=== PATIENT | female | born 1985 | race Caucasian/White ===

== ENCOUNTER 2017-02-19 17:26 | Outpatient (CLI) | payer MEDICAID ==
[~2017-02-19] VITALS: Ht 154.9 cm; Wt 59.6 kg
[2017-02-19] MEDS ORDERED: PRENAT PO (18:15)
[2017-02-19 18:16] VITALS: BP 96/58; PULSE 86; RESP 18; Ht 154.9 cm; Wt 59.6 kg
[2017-02-19 18:45] LABS: ADD SCAN DIFF NO; HAAIG REFLEX REFLEX FILED
[2017-02-19 18:49] LABS: BASOPHILS % 0.2 % (0.0-2.0); EOSINOPHILS # 0.2 10^3/ul (0.0-0.5); EOSINOPHILS % 1.8 % (0.0-7.0); HEMATOCRIT 30.7 % (37.0-47.0); HEMOGLOBIN 10.6 g/dl (12.0-16.0); LYMPHOCYTES # 2.4 10^3/ul (0.8-2.9); LYMPHOCYTES % 29.5 % (15.0-51.0); MEAN CORPUSCULAR HEMOGLOBIN 30.5 pg (29.0-33.0); MEAN CORPUSCULAR HGB CONC 34.5 g/dl (32.0-37.0); MEAN CORPUSCULAR VOLUME 88.5 fl (82.0-101.0); MEAN PLATELET VOLUME 10.5 fl (7.4-10.4); MONOCYTE # 0.5 10^3/ul (0.3-0.9); MONOCYTES % 5.5 % (0.0-11.0); NEUTROPHIL # 5.1 10^3/ul (1.6-7.5); NEUTROPHILS % 62.8 % (39.0-77.0); PLATELET COUNT 167 10^3/UL (140-415); RED BLOOD COUNT 3.47 10^6/ul (4.20-5.40); RED CELL DISTRIBUTION WIDTH 13.3 % (11.5-14.5); WHITE BLOOD COUNT 8.2 10^3/ul (4.8-10.8)
--- NOTE | 2017-02-19 19:05 | RADRPT ---
PROCEDURE: US OB. CLINICAL INDICATION: Itching . well being. TECHNIQUE: Multiple sonographic images of the pelvis were obtained. The images were reviewed on a PACS workstation. COMPARISON: No prior studies are available for comparison. FINDINGS: There is a single live intrauterine . cardiac activity is identified at a rate of 14 2 beats per minute. presentation is cephalic. Placenta is fundal grade 1. The endovaginal cervical length is 3. 7 cm. Biophysical profile score is as follows: Breathing 2 Movements 2 Tone 2 Fluid volume 2 Amniotic fluid index = 17.8 cm Total biophysical profile score = 05/19 IMPRESSION: Biophysical profile score = 05/19 RPTAT: HH .Nicolás Bianchi MD, MD Date Time Electronically viewed and signed by .Nicolás Bianchi MD, on 02/19/2017 19:05 .W/
--- NOTE | 2017-02-19 19:08 | RADRPT ---
PROCEDURE: US OB. CLINICAL INDICATION: Itching TECHNIQUE: Multiple sonographic images of the pelvis were obtained. The images were reviewed on a PACS workstation. COMPARISON: No prior studies are available for comparison. FINDINGS: The cervix is closed with a length of 3.7 cm. There is a single viable intrauterine gestation. Cardiac activity is present with 161 beats per min hilaria. There is a cephalic presentation. Measurements were made in order to determine age. The results are as follows: BPD =7.07 cm HC =27.09 cm AC =26.52 cm FL =5.79 cm. Estimated gestational age of approximately 30 weeks 5 days. The estimated date of delivery is 05/02/2017. The EFW = 1537 g 23% . The placenta is fundal. There is no evidence for an abruption or placenta previa. There is a normal amount of amniotic fluid with an ISAIAS = 17.8 cm. IMPRESSION: Single viable intrauterine gestation of approximately 29 weeks 5 days. The estimated date of delive ry is 05/02/2017 . .Nicolás Bianchi MD, Date Time Electronically viewed and signed by .Nicolás Bianchi MD, on 02/19/2017 19:08 .W/
[2017-02-19 19:25] LABS: ADD UMIC YES; URINE BILIRUBIN (Dip) 1+ (NEGATIVE); URINE BLOOD (Dip) NEGATIVE (NEGATIVE); URINE COLOR YELLOW (YELLOW); URINE GLUCOSE (Dip) NEGATIVE (NEGATIVE); URINE KETONES (Dip) NEGATIVE (NEGATIVE); URINE LEUKOCYTE ESTERASE (Dip) 1+ (NEGATIVE); URINE NITRITE (Dip) NEGATIVE (NEGATIVE); URINE TOTAL PROTEIN (Dip) NEGATIVE (NEGATIVE); URINE UROBILINOGEN (Dip) 4.0 E.U./dL (0.1-1.0)
[2017-02-19 19:38] LABS: BACTERIA,URINE FEW; ICTOTEST NEGATIVE (NEGATIVE); SQUAMOUS EPITHELIAL CELL,UR MANY; URINE RBCS 0-2 /HPF ([, 0])
[2017-02-19 19:40] LABS: ALBUMIN 3.1 g/dl (3.3-4.9); CHLORIDE 104 mmol/L (97-110); SODIUM 136 mmol/L (135-144)
[2017-02-19 19:41] LABS: POTASSIUM 3.6 mmol/L (3.5-5.1)
[2017-02-19 19:43] LABS: ALBUMIN/GLOBULIN RATIO 0.86; ALKALINE PHOSPHATASE 111 IU/L (42-121); ANION GAP 14 (8-16); ASPARTATE AMINO TRANSFERASE 66 IU/L (15-46); BILIRUBIN,INDIRECT 0.3 mg/dl (0-1.1); BILIRUBIN,TOTAL 0.3 mg/dl (0.2-1.3); BLOOD UREA NITROGEN 7 mg/dl (7-20); CARBON DIOXIDE 22 mmol/L (21-31); CREATININE 0.39 mg/dl (0.44-1.00); TOTAL PROTEIN 6.7 g/dl (6.1-8.1)
[2017-02-19 19:44] LABS: ALANINE AMINOTRANSFERASE 62 IU/L (13-69); CALCIUM 8.8 mg/dl (8.4-10.2); GLUCOSE 87 mg/dl (70-220)
[2017-02-19 20:05] LABS: BARBITURATES NEGATIVE (NEGATIVE); BENZODIAZEPINES NEGATIVE (NEGATIVE); CANNABINOIDS NEGATIVE (NEGATIVE); COCAINE NEGATIVE (NEGATIVE); OPIATES NEGATIVE (NEGATIVE)
--- NOTE | 2017-02-19 21:12 | PN ---
Date/Time of Note Date/Time of Note DATE: 02/19/17 TIME: 21:03 OB Subjective Subjective Subjective 31yo P1 @ presents from clinic for itching,which she has had since 5mos of . She just got released from long term 2 wks ago and has known Hep B and Hep C She received PNC in long term and will bring the records to clinic on Thursday No bleeding or ctx or LOF, good FM OB Objective Objective Objective VS: 96/58, 86, 18, 99.1 Abdomen- gravid, n/t SVE- deferred FHT- 130; Cat I [place]- no ctx cervical length 3.7cm utox neg nml chemistry, AST/ALT- 66/22 CBC- nml, w exception of mild anemia (hemoglobin 10.6) Abdomen: WNL Heart Rate: 130's Accelerations: Accelerations Present Decelerations: No Decelerations Varibility: Moderate OB Assessment/Plan Other Assessment: 31 yo P1 @ 29 wks w itching, which has been chronic and happened with her previous as well - reassuring status - h/o Hep B and C -nml cervical length, no si/sx pre-term labor Other plan: d/c home patient to f/u in clinic on Thursday w records and to start care, possibly to have LFT"s drawn advised DIANA Rice MD February 19, 2017 21:12
[2017-02-19 21:23] LABS: HEPATITIS B CORE ANTIBODY NEGATIVE (NEGATIVE)
--- NOTE | 2017-02-20 00:02 | TRIAGE ---
OB Triage Datetime Report Generated by CPN: 02/20/2017 00:02 Datetime: 02/19/2017 21:00 Labor Evaluation Frequency: 0 Monitor Mode: External Pattern: Normal: <= 5 Contractions in 10 Minutes Heart Rate FHR Baseline Rate: 135 FHR Baseline Changes: No Baseline Change Variability: Moderate 6-25 bpm Accelerations: 15X15 Decelerations: None Category: Category I Datetime: 02/19/2017 20:39 Stage of : OB Triage Datetime: 02/19/2017 20:27 Vaginal Exam Membrane Status: Intact Datetime: 02/19/2017 20:00 Labor Evaluation Frequency: 0 Monitor Mode: External Heart Rate FHR Baseline Rate: 135 Monitor Mode: External US FHR Baseline Changes: No Baseline Change Variability: Moderate 6-25 bpm Accelerations: 15X15 Decelerations: None Category: Category I Datetime: 02/19/2017 19:27 Assessment Type: Triage Maternal Assessment Level of Consciousness: Fully Conscious DTR's/Clonus: DTRs 2+; No Clonus Headache: Denies Blurred Vision: No Respiratory Effort: Unlabored; Regular Rhythm; Equal Expansion Breath Sounds, Left: Clear and Equal Breath Sounds, Right: Clear and Equal Nausea/Vomiting: Denies RUQ Epigastric Pain: Denies Lower Extremities Edema: None Degree: None Upper Extremities Edema: None Degree: None Facial Edema: None Fall Risk Assessment History of Falling: (0) No Secondary Diagnosis: (0) No Ambulatory Aid: (0) Bedrest/Nurse Assist IV Therapy: (0) No Gait: (0) Normal/Bedrest/Immobile Mental Status: (0) Oriented to Own Ability Fall Score: 0 Fall Risk Score Definition: No Risk: No action required Datetime: 02/19/2017 17:58 Stage of : OB Triage Assessment Type: Triage EGA: 30.5 Maternal Assessment Level of Consciousness: Fully Conscious DTR's/Clonus: DTRs 2+; No Clonus Headache: Denies Blurred Vision: No Respiratory Effort: Unlabored; Regular Rhythm; Equal Expansion Breath Sounds, Left: Clear and Equal Breath Sounds, Right: Clear and Equal Nausea/Vomiting: Denies RUQ Epigastric Pain: Denies Facial Edema: None Temperature Route: Axillary Fall Risk Assessment History of Falling: (0) No Secondary Diagnosis: (0) No Ambulatory Aid: (0) Bedrest/Nurse Assist IV Therapy: (0) No Gait: (0) Normal/Bedrest/Immobile Mental Status: (0) Oriented to Own Ability Fall Score: 0 Fall Risk Score Definition: No Risk: No action required Labor Evaluation Frequency: 0 Monitor Mode: External Heart Rate FHR Baseline Rate: 135 Monitor Mode: External US Variability: Moderate 6-25 bpm Accelerations: 15X15 Decelerations: None Category: Category I Pain Assessment Pain Scale: 7 Pain Presence: Constant (Annotations: COMES AND GOES DAY TO DAY) Pain Type: Sharp Pain Location: Abdomen Pain Goal: 3 Pain Relief Measures: Comfort Measures Datetime: 02/19/2017 17:57 Time of Arrival: 02/19/2017 17:20 Arrived By: Ambulatory Arrived From: Dr. Davis Chief Complaint: SENT FROM CLINIC TO EVALUATE FOR CHOLESTASIS, ORDERS RECEIVED Movement: Present Contractions: Denies/Absent Rupture of Membranes: Denies Vaginal Bleeding: None Vaginal Discharge: Denies Recent Sexual Intercouse: Denies Abdominal Trauma: Not Applicable Patient Complaints: None Time Provider Notified: 02/19/2017 20:39 Provider Notified: DR RAMIREZ Initial Plan: MONITOR,
== END 2017-02-19 21:05 | disposition home or self-care (01) ==
LOC: OBT 17:26 → L-D 17:26 → OBT 21:05
PROVIDERS: ATTEND Obstetrics & Gynecology
DX: O26.893 Other specified pregnancy related conditions, third trimester (principal); O98.413 Viral hepatitis complicating pregnancy, third trimester; B19.10 Unspecified viral hepatitis B without hepatic coma; B19.20 Unspecified viral hepatitis C without hepatic coma; Z3A.29 29 weeks gestation of pregnancy
CPT/HCPCS: 76815; 76817; 76818; 80053; 80307; 81001; 81003; 83789; 85025; 86704; 86709; 86803; 87340

== ENCOUNTER 2017-02-20 23:05 | Inpatient (IN) | payer MEDICAID ==
[~2017-02-20] VITALS: Ht 157.5 cm; Wt 59.1 kg
[~2017-02-20 23:05] MED LIST: PRENAT PO
[2017-02-20 23:45] VITALS: BP 104/52; PULSE 86; RESP 18; Ht 157.5 cm; Wt 59.1 kg
--- NOTE | 2017-02-21 00:09 | HP ---
Date/Time of Note Date/Time of Note DATE: 02/21/17 TIME: 00:07 OB - History Hx of Present Free Text/Dictation 30+wks GA with severe itching suspected cholestatsis of pregnacy : 2 Para: 1 Care: Good Care Ultrasounds: Normal mid trimester US Obstetrical Complications: None Medical Complications: None Past Family/Social History * Past Medical, Surgical, Family and Obstetric Histories reviewed from chart. OB Admission Exam Vital Signs Vital Signs Vital Signs Date Time Temp Pulse Resp B/P Pulse Ox O2 Delivery O2 Flow Rate FiO2 02/20/17 23:45 98.4 86 18 104/52 Room Air Physical Exam Abdomen: WNL Membranes: Intact Heart Rate: 140's Accelerations: Accelerations Present Decelerations: No Decelerations Varibility: Moderate Contractions on Admission: None OB Assessment/Plan Reason for admission: observation Plan: Expectant Management Other plan: Prenatalogy consult Steroids PIH panel Close monitoring PRASANTH DELONG M.D. February 21, 2017 00:09
[2017-02-21] MEDS ORDERED: BETAMET NA PHOS/AC(6 MG/ML) 5ML INJ IM SCH (00:30)
[2017-02-21] MEDS: LACTATED RINGER'S 1,000 ML IV SCH ×3 (01:05→14:44)
[2017-02-21 01:22] LABS: ADD SCAN DIFF NO
[2017-02-21 01:27] LABS: BASOPHILS % 0.2 % (0.0-2.0); EOSINOPHILS # 0.1 10^3/ul (0.0-0.5); EOSINOPHILS % 1.7 % (0.0-7.0); HEMOGLOBIN 10.7 g/dl (12.0-16.0); LYMPHOCYTES # 2.4 10^3/ul (0.8-2.9); LYMPHOCYTES % 29.5 % (15.0-51.0); MEAN CORPUSCULAR HEMOGLOBIN 29.7 pg (29.0-33.0); MEAN CORPUSCULAR HGB CONC 33.4 g/dl (32.0-37.0); MEAN CORPUSCULAR VOLUME 88.9 fl (82.0-101.0); MEAN PLATELET VOLUME 10.4 fl (7.4-10.4); MONOCYTE # 0.7 10^3/ul (0.3-0.9); MONOCYTES % 8.1 % (0.0-11.0); NEUTROPHILS % 60.3 % (39.0-77.0); PLATELET COUNT 157 10^3/UL (140-415); RED CELL DISTRIBUTION WIDTH 13.2 % (11.5-14.5); WHITE BLOOD COUNT 8.3 10^3/ul (4.8-10.8)
[2017-02-21 01:37] LABS: ADD UMIC NO; URINE BILIRUBIN (Dip) 1+ (NEGATIVE); URINE BLOOD (Dip) NEGATIVE (NEGATIVE); URINE COLOR YELLOW (YELLOW); URINE GLUCOSE (Dip) NEGATIVE (NEGATIVE); URINE KETONES (Dip) NEGATIVE (NEGATIVE); URINE LEUKOCYTE ESTERASE (Dip) NEGATIVE (NEGATIVE); URINE NITRITE (Dip) NEGATIVE (NEGATIVE); URINE TOTAL PROTEIN (Dip) NEGATIVE (NEGATIVE); URINE UROBILINOGEN (Dip) 1.0 E.U./dL (0.1-1.0)
[2017-02-21 01:41] LABS: ICTOTEST POSITIVE (NEGATIVE)
[2017-02-21 01:51] LABS: PROTIME 13.2 Sec (12.2-14.2)
[2017-02-21 01:52] LABS: PARTIAL THROMBOPLASTIN TIME 31.1 Sec (25.0-35.0)
[2017-02-21 02:01] LABS: ALBUMIN 3.2 g/dl (3.3-4.9); ALBUMIN/GLOBULIN RATIO 0.91; BILIRUBIN,INDIRECT 0.4 mg/dl (0-1.1); BILIRUBIN,TOTAL 0.4 mg/dl (0.2-1.3); CALCIUM 8.9 mg/dl (8.4-10.2); CREATININE 0.54 mg/dl (0.44-1.00); POTASSIUM 3.8 mmol/L (3.5-5.1); TOTAL PROTEIN 6.7 g/dl (6.1-8.1); URIC ACID 4.1 mg/dl (3.1-7.9)
[2017-02-21 02:22] LABS: BARBITURATES NEGATIVE (NEGATIVE); BENZODIAZEPINES NEGATIVE (NEGATIVE); CANNABINOIDS NEGATIVE (NEGATIVE); COCAINE NEGATIVE (NEGATIVE); OPIATES NEGATIVE (NEGATIVE)
--- NOTE | 2017-02-21 03:19 | TRIAGE ---
OB Triage Datetime Report Generated by CPN: 02/21/2017 03:18 Datetime: 02/21/2017 01:53 Stage of : Antepartum Assessment Type: Ongoing Assessment Level of Consciousness: Fully Conscious DTR's/Clonus: DTRs 2+; No Clonus Headache: Denies Blurred Vision: No Respiratory Effort: Unlabored; Regular Rhythm; Equal Expansion Breath Sounds, Left: Clear and Equal Breath Sounds, Right: Clear and Equal Nausea/Vomiting: Denies RUQ Epigastric Pain: Denies Lower Extremities Edema: None Degree: None Upper Extremities Edema: None Degree: None Facial Edema: None Temperature Route: Oral History of Falling: (0) No Secondary Diagnosis: (0) No Ambulatory Aid: (0) Bedrest/Nurse Assist IV Therapy: (0) No Gait: (0) Normal/Bedrest/Immobile Mental Status: (0) Oriented to Own Ability Fall Score: 0 Fall Risk Score Definition: No Risk: No action required Pain Presence: None/Denies Datetime: 02/21/2017 01:40 Stage of : Antepartum Datetime: 02/21/2017 01:30 Stage of : OB Triage Datetime: 02/21/2017 01:00 Stage of : OB Triage Assessment Type: Triage Frequency: IRRITABILITY Monitor Mode: External Pattern: Normal: <= 5 Contractions in 10 Minutes FHR Baseline Rate: 135 Monitor Mode: External US FHR Baseline Changes: No Baseline Change Variability: Moderate 6-25 bpm Accelerations: 15X15 Decelerations: None Category: Category I Datetime: 02/21/2017 00:25 Stage of : OB Triage Datetime: 02/21/2017 00:22 Contraction Comments: found patient scratching belly and moving toco. Advised to keep monitor in p lace for contractions. Pt verbalized understanding. Datetime: 02/21/2017 00:00 Stage of : OB Triage Frequency: IRRITABILITY Monitor Mode: External Pattern: Normal: <= 5 Contractions in 10 Minutes Resting Tone [place]: Relaxed Contraction Comments: ABDOMEN SOFT ON PALPATION FHR Baseline Rate: 135 Monitor Mode: External US Variability: Moderate 6-25 bpm Accelerations: 15X15 Decelerations: None Category: Category I Datetime: 02/20/2017 23:40 Stage of : OB Triage Datetime: 02/20/2017 23:39 Time of Arrival: 02/20/2017 23:00 EGA: 30.6 Arrived By: Wheelchair Arrived From: Home Chief Complaint: SEVERE ITCHINESS ABDOMINAL PAIN Movement: Present Contractions: Irregular Rupture of Membranes: Denies Vaginal Bleeding: None Vaginal Discharge: Denies Recent Sexual Intercouse: Denies Abdominal Trauma: Not Applicable Patient Complaints: Other Time Provider Notified: 02/20/2017 23:40 Provider Notified: DR. DELONG Initial Plan: EFM, CALL OB Datetime: 02/20/2017 23:35 Stage of : OB Triage Datetime: 02/20/2017 23:14 Contraction Comments: APPLIED Comments: APPLIED Datetime: 02/20/2017 23:10 Stage of : OB Triage Assessment Type: Triage Level of Consciousness: Fully Conscious DTR's/Clonus: DTRs 2+; No Clonus Headache: Denies Blurred Vision: No Respiratory Effort: Unlabored; Regular Rhythm; Equal Expansion Breath Sounds, Left: Clear and Equal Breath Sounds, Right: Clear and Equal Nausea/Vomiting: Denies RUQ Epigastric Pain: Denies Lower Extremities Edema: None Degree: None Upper Extremities Edema: None Degree: None Facial Edema: None Temperature Route: Oral History of Falling: (0) No Secondary Diagnosis: (0) No Ambulatory Aid: (0) Bedrest/Nurse Assist IV Therapy: (0) No Gait: (0) Normal/Bedrest/Immobile Mental Status: (0) Oriented to Own Ability Fall Score: 0 Fall Risk Score Definition: No Risk: No action required Pain Scale: 8 Pain Presence: Intermittent Pain Type: Burning; Sharp Pain Location: Abdomen Pain Goal: 0 Pain Relief Measures: Comfort Measures Datetime: 02/19/2017 19:27 Fall Score: 0 Fall Risk Score Definition: No Risk: No action required Datetime: 02/19/2017 17:58 EGA: 30.5 Fall Score: 0 Fall Risk Score Definition: No Risk: No action required
[2017-02-21] MEDS ORDERED: MULTIVIT/MIN/FOLATE/IRON/PREN TAB PO SCH (09:00)
--- NOTE | 2017-02-21 11:18 | RADRPT ---
PROCEDURE: OB ultrasound for biophysical profile CLINICAL INDICATION: Pain, inadequate care. Biophysical profile. . TECHNIQUE: Multiple sonographic images of the pelvis were obtained. Transabdominal view of the gr avid uterus are available for review. The images were reviewed on a PACS workstation. COMPARISON: None FINDINGS: breathing movement = 2/2 tone = 2/2 motion = 2/2 ISAIAS = 2/2 Single intrauterine gestation is identified in cephalic position. heart rate is 152 bpm. Plac enta is posterior without evidence for abruption or previa. ISAIAS measures 9.6 cm, within normal limi ts. IMPRESSION: 1. Single live intrauterine gestation. 2. Biophysical profile = 8/8. 3. ISAIAS = 9.6 cm. RPTAT: QQ .Sharad Kearns MD, Date Time Electronically viewed and signed by .Sharad Kearns MD, on 02/21/2017 11:18 .R/
[2017-02-21] MEDS: COLESEVELAM 625 MG TAB PO SCH ×2 (11:48→17:47)
[2017-02-21] MEDS ORDERED: URSODIOL 300 MG CAP PO SCH (13:00)
--- NOTE | 2017-02-21 16:16 | DS ---
Date/Time of Note Date/Time of Note home on ursodiol & Welchol DATE: 02/21/17 TIME: 16:13 Obstetrical Discharge Record Final Diagnosis Final Diagnosis: not delivered Other Final Diagnosis possible cholestasis Complications Other (possible cholestasis) Condition on Discharge Physical Assessment Voiding: Yes Bowel Movement: Yes Breast: Soft, non-tender, Filling Fundus: Other (Gravid ) Abdomen and Incision: Gravid Episiotomy: NA Calf Tenderness: No Patient Condition: Good SOCRATES FAYE MD February 21, 2017 16:16
--- NOTE | 2017-02-21 16:34 | PD.PPDC ---
TAPING SUPERVISOR Discharge Instruction Provider Information Physician Information 31 y/o female with + HEP B screen admitted with generalized itching and was started on Welchol and Ursodiol Diagnosis Final Diagnosis: Possible cholestasis Condition Patient Condition: Good Diet Diet: Resume Regular Diet Activity/Restrictions Activity: Normal Activity May Shower Follow-up Follow-up with Physician: 2, Day/Days (in OB triage for antepartum testing ) SOCRATES FAYE MD February 21, 2017 16:34
[2017-02-21] MEDS ORDERED: URSO300C21 PO (16:35)
[2017-02-21] MEDS ORDERED: COLE625T2 PO (16:35)
--- NOTE | 2017-02-21 17:05 | CONS ---
DATE OF ADMISSION: 02/21/2017 DATE OF CONSULTATION: TYPE OF CONSULTATION: . HISTORY OF PRESENT ILLNESS: I was asked to perform a consultation by the watershed program manager for Danika Nino, who is a 31-year-old G2, P1 female admitted to [facility] at 31 and 0/7 weeks on 02/21/2017 for suspected cholestasis of . She also has a history of positive hepatitis C which was found on her incarceration from a correctional facility during this . I spoke at length with mom regarding possibility of delivery and admission of the infant to ICU if the infant is born at less than 35 weeks. Discussed complications associated with pr eterm delivery. Discussed morbidities including but not limited to respiratory distress syndrome re quiring chronic ventilator use, chronic oxygen use, sepsis, necrotizing enterocolitis. Discussed fu ture complications including but not limited to cerebral palsy, attention deficit disorder, learning disabilities which are associated with delivery. Mom verbalized her understanding of our d iscussion. I also spoke with her regarding the implications of maternal hepatitis C infection. Discussed with her that she may breast feed unless there is bleeding from her nipples. Discussed that the w ill need followup laboratory evaluation by kiln charger for hepatitis C antibodies or PCR to evaluat e for infection. Mom verbalized understanding of our discussion. ADDENDUM: The infant's gestational age is 31 and 0/7 week. Dictated By: BEBA BAPTISTE MD, AM/STEVEN Conf#: [id number] DID#: [id number]
[2017-02-25 13:06] LABS: CHENODEOXYCHOLIC ACID 24.7 umol/L (< OR = 3.1); CHOLIC ACID 22.5 umol/L (< OR = 1.8); DEOXYCHOLIC ACID <0.5 umol/L (< OR = 2.4); TOTAL BILE ACIDS 47.2 umol/L (< OR = 6.8)
[2017-02-25 13:06] LABS: CHENODEOXYCHOLIC ACID 13.7 umol/L (< OR = 3.1); CHOLIC ACID 18.6 umol/L (< OR = 1.8); DEOXYCHOLIC ACID <0.5 umol/L (< OR = 2.4); TOTAL BILE ACIDS 32.3 umol/L (< OR = 6.8)
== END 2017-02-21 17:55 | disposition home or self-care (01) | DRG 781 ==
LOC: OBT 23:05 → L-D 23:07 → OBT 02-21 01:40 → OBG 02-21 01:41
PROVIDERS: ADMIT Obstetrics & Gynecology; ATTEND Obstetrics & Gynecology
DX: O26.613 Liver and biliary tract disorders in pregnancy, third trimester (principal); K83.1 Obstruction of bile duct; Z3A.30 30 weeks gestation of pregnancy; L29.9 Pruritus, unspecified
CPT/HCPCS: 36415; 76818; 80053; 80307; 81003; 83789; 84560; 85025; 85384; 85610; 85730; 96360; G0463; J0702; J7120

== ENCOUNTER 2017-02-23 13:18 | Outpatient (CLI) | payer MEDICAID ==
[~2017-02-23] VITALS: Ht 152.4 cm; Wt 59.0 kg
[~2017-02-23 13:18] MED LIST changes: +COLE625T2 PO; +URSO300C21 PO
[2017-02-23 13:42] VITALS: BP 88/51; PULSE 19; RESP 19; Ht 152.4 cm; Wt 59.0 kg
--- NOTE | 2017-02-23 14:16 | RADRPT ---
PROCEDURE: OB ultrasound for biophysical profile CLINICAL INDICATION: Biophysical profile. . TECHNIQUE: Multiple sonographic images of the pelvis were obtained. Transabdominal views are obta ined. COMPARISON: 02/21/2017 FINDINGS: Single intrauterine gestation. Presentation: Cephalic. Placenta: Posterior No evidence of placental abruption. No evidence of placenta previa. breathing movement = 2/2 tone = 2/2 motion = 2/2 ISAIAS = 2/2 ISAIAS = 16.4 cm heart rate: 158 beats per minute IMPRESSION: Single intrauterine gestation. Biophysical profile 05/19 RPTAT: AADD .Ren Gresham MD, MD Date Time Electronically viewed and signed by .Ren Gresham MD, on 02/23/2017 14:16 .B/
--- NOTE | 2017-02-23 15:14 | TRIAGE ---
OB Triage Datetime Report Generated by CPN: 02/23/2017 15:14 Datetime: 02/23/2017 15:00 Stage of : OB Triage Maternal Assessment Level of Consciousness: Fully Conscious DTR's/Clonus: DTRs 1+ Headache: Denies Breath Sounds, Left: Clear and Equal Breath Sounds, Right: Clear and Equal Nausea/Vomiting: Denies RUQ Epigastric Pain: Denies Monitor Mode: External Resting Tone [place]: Relaxed Heart Rate FHR Baseline Rate: 135 Monitor Mode: External US Variability: Moderate 6-25 bpm Accelerations: 15X15 Decelerations: None Category: Category I Pain Assessment Pain Scale: 0 Pain Presence: None/Denies Pain Type: N/A Pain Goal: 3 Vaginal Exam Membrane Status: Intact Datetime: 02/23/2017 14:35 Maternal Assessment Level of Consciousness: Fully Conscious DTR's/Clonus: DTRs 1+ Headache: Denies Blurred Vision: No Respiratory Effort: Unlabored Breath Sounds, Left: Clear and Equal Breath Sounds, Right: Clear and Equal Nausea/Vomiting: Denies RUQ Epigastric Pain: Denies Facial Edema: None Monitor Mode: External Resting Tone [place]: Relaxed Heart Rate FHR Baseline Rate: 135 Monitor Mode: External US Variability: Moderate 6-25 bpm Accelerations: 15X15 Decelerations: None Category: Category I Pain Assessment Pain Scale: 0 Pain Presence: None/Denies Pain Type: N/A Pain Goal: 3 Vaginal Exam Membrane Status: Intact Datetime: 02/23/2017 13:49 Maternal Assessment Level of Consciousness: Fully Conscious DTR's/Clonus: DTRs 1+ Headache: Denies Blurred Vision: No Respiratory Effort: Unlabored Breath Sounds, Left: Clear and Equal Breath Sounds, Right: Clear and Equal Nausea/Vomiting: Denies RUQ Epigastric Pain: Denies Facial Edema: None Monitor Mode: External Resting Tone [place]: Relaxed Heart Rate FHR Baseline Rate: 125 Monitor Mode: External US Variability: Moderate 6-25 bpm Accelerations: 15X15 Decelerations: None Category: Category I Vaginal Exam Membrane Status: Intact Datetime: 02/23/2017 13:21 Assessment Type: Triage Maternal Assessment Level of Consciousness: Fully Conscious DTR's/Clonus: DTRs 2+; No Clonus Headache: Denies Blurred Vision: No Respiratory Effort: Unlabored; Regular Rhythm; Equal Expansion Breath Sounds, Left: Clear and Equal Breath Sounds, Right: Clear and Equal Nausea/Vomiting: Denies RUQ Epigastric Pain: Denies Lower Extremities Edema: None Degree: None Upper Extremities Edema: None Degree: None Facial Edema: None Fall Risk Assessment History of Falling: (0) No Secondary Diagnosis: (0) No Ambulatory Aid: (0) Bedrest/Nurse Assist IV Therapy: (0) No Gait: (0) Normal/Bedrest/Immobile Mental Status: (0) Oriented to Own Ability Fall Score: 0 Fall Risk Score Definition: No Risk: No action required Datetime: 02/23/2017 13:20 Time of Arrival: 02/23/2017 13:20 EGA: 31.2 Arrived By: Ambulatory Arrived From: Home Chief Complaint: PT CAME IN STATING THAT THE DOCTOR TOLD HER TO COME TO GET MONITOR Movement: Present Contractions: Denies/Absent Rupture of Membranes: Denies Vaginal Discharge: Denies Recent Sexual Intercouse: Denies Abdominal Trauma: Not Applicable Additional Patient Complaints: NONE Time Provider Notified: 02/23/2017 13:30 Provider Notified: JAMES Initial Plan: NST AND BPP Datetime: 02/21/2017 17:01 Stage of : Antepartum Temperature Route: Oral Pain Assessment Pain Scale: 0 Pain Presence: None/Denies Datetime: 02/21/2017 17:00 Labor Evaluation Frequency: 0 Monitor Mode: External Resting Tone [place]: Relaxed Heart Rate FHR Baseline Rate: 140 Monitor Mode: External US FHR Baseline Changes: No Baseline Change Variability: Moderate 6-25 bpm Accelerations: 15X15 Decelerations: None Category: Category I Datetime: 02/21/2017 16:36 Stage of : Antepartum Datetime: 02/21/2017 16:08 Labor Evaluation Frequency: 0 Monitor Mode: External Resting Tone [place]: Relaxed Heart Rate FHR Baseline Rate: 140 Monitor Mode: External US FHR Baseline Changes: No Baseline Change Variability: Moderate 6-25 bpm Accelerations: 15X15 Decelerations: None Category: Category I Datetime: 02/21/2017 15:51 Monitor Mode: External Heart Rate FHR Baseline Rate: 140 Monitor Mode: External US FHR Baseline Changes: No Baseline Change Variability: Moderate 6-25 bpm Accelerations: 10X10 Decelerations: None Category: Category I Datetime: 02/21/2017 15:50 Stage of : Antepartum Temperature Route: Oral Pain Presence: None/Denies Datetime: 02/21/2017 14:40 Labor Evaluation Frequency: 0 Monitor Mode: External Resting Tone [place]: Relaxed Heart Rate FHR Baseline Rate: 140 Monitor Mode: External US FHR Baseline Changes: No Baseline Change Variability: Moderate 6-25 bpm Accelerations: 15X15 Decelerations: None Category: Category I Datetime: 02/21/2017 14:00 Labor Evaluation Frequency: 0 Monitor Mode: External Monitor Mode: External US Datetime: 02/21/2017 13:00 Labor Evaluation Frequency: 0 Monitor Mode: External Resting Tone [place]: Relaxed Heart Rate FHR Baseline Rate: 140 Monitor Mode: External US FHR Baseline Changes: No Baseline Change Variability: Moderate 6-25 bpm Accelerations: 15X15 Decelerations: None Category: Category I Datetime: 02/21/2017 12:30 Stage of : Antepartum Temperature Route: Oral Pain Assessment Pain Scale: 0 Pain Presence: None/Denies Datetime: 02/21/2017 12:00 Labor Evaluation Frequency: 0 Monitor Mode: External Resting Tone [place]: Relaxed Heart Rate FHR Baseline Rate: 140 Monitor Mode: External US FHR Baseline Changes: No Baseline Change Variability: Moderate 6-25 bpm Accelerations: 15X15 Decelerations: None Category: Category I Datetime: 02/21/2017 11:00 Monitor Mode: External Duration (sec)2399: 0 Resting Tone [place]: Relaxed Heart Rate FHR Baseline Rate: 140 Monitor Mode: External US FHR Baseline Changes: No Baseline Change Variability: Moderate 6-25 bpm Accelerations: 15X15 Decelerations: None Category: Category I Datetime: 02/21/2017 10:00 Labor Evaluation Frequency: 0 Monitor Mode: External Resting Tone [place]: Relaxed Heart Rate FHR Baseline Rate: 140 Monitor Mode: External US FHR Baseline Changes: No Baseline Change Variability: Moderate 6-25 bpm Accelerations: 15X15 Decelerations: None Category: Category I Datetime: 02/21/2017 09:00 Labor Evaluation Frequency: 0 Monitor Mode: External Resting Tone [place]: Relaxed Heart Rate FHR Baseline Rate: 140 Monitor Mode: External US FHR Baseline Changes: No Baseline Change Variability: Moderate 6-25 bpm Accelerations: 15X15 Decelerations: None Category: Category I Datetime: 02/21/2017 08:00 Labor Evaluation Frequency: 0 Monitor Mode: External Resting Tone [place]: Non Relaxed Heart Rate FHR Baseline Rate: 140 Monitor Mode: External US FHR Baseline Changes: No Baseline Change Variability: Moderate 6-25 bpm Accelerations: 15X15 Decelerations: None Category: Category I Datetime: 02/21/2017 07:39 Assessment Type: Ongoing Assessment Maternal Assessment Level of Consciousness: Fully Conscious DTR's/Clonus: DTRs 2+; No Clonus Headache: Denies Blurred Vision: No Respiratory Effort: Unlabored; Regular Rhythm; Equal Expansion Breath Sounds, Left: Clear and Equal Breath Sounds, Right: Clear and Equal Nausea/Vomiting: Denies RUQ Epigastric Pain: Denies Lower Extremities Edema: None Degree: None Upper Extremities Edema: None Degree: None Facial Edema: None Fall Risk Assessment History of Falling: (0) No Secondary Diagnosis: (0) No Ambulatory Aid: (0) Bedrest/Nurse Assist IV Therapy: (20) Yes Gait: (0) Normal/Bedrest/Immobile Mental Status: (0) Oriented to Own Ability Fall Score: 20 Fall Risk Score Definition: No Risk: No action required Datetime: 02/21/2017 07:33 Stage of : Antepartum Datetime: 02/21/2017 07:00 Labor Evaluation Frequency: 0 Heart Rate FHR Baseline Rate: 130 Monitor Mode: External US FHR Baseline Changes: No Baseline Change Variability: Moderate 6-25 bpm Accelerations: 15X15 Decelerations: None Category: Category I Datetime: 02/21/2017 06:00 Labor Evaluation Frequency: 0 Monitor Mode: External Heart Rate FHR Baseline Rate: 130 Monitor Mode: External US FHR Baseline Changes: No Baseline Change Variability: Moderate 6-25 bpm Accelerations: 15X15 Decelerations: None Category: Category I Datetime: 02/21/2017 05:00 Labor Evaluation Frequency: 0 Monitor Mode: External Heart Rate FHR Baseline Rate: 130 Monitor Mode: External US FHR Baseline Changes: No Baseline Change Variability: Moderate 6-25 bpm Accelerations: 15X15 Decelerations: None Category: Category I Datetime: 02/21/2017 04:00 Labor Evaluation Frequency: 0 Monitor Mode: External Heart Rate FHR Baseline Rate: 120 Monitor Mode: External US FHR Baseline Changes: No Baseline Change Variability: Moderate 6-25 bpm Accelerations: 15X15 Decelerations: None Category: Category I Datetime: 02/21/2017 03:41 Comments: TOCO AND U/S REAPPLIED SHE TOOK IT OFF TO GO TO [facility]. INSTRUCTED TO CALL FOR HELP WHEN GETTING UP TO ASSIST WITH [facility] EQUIPMENT. Datetime: 02/21/2017 03:00 Assessment Type: Admission Assessment Maternal Assessment Level of Consciousness: Fully Conscious Headache: Denies Respiratory Effort: Unlabored Breath Sounds, Left: Clear and Equal Breath Sounds, Right: Clear and Equal Lower Extremities Edema: None Upper Extremities Edema: None Fall Risk Assessment History of Falling: (0) No Ambulatory Aid: (0) Bedrest/Nurse Assist IV Therapy: (20) Yes Gait: (0) Normal/Bedrest/Immobile Mental Status: (0) Oriented to Own Ability Labor Evaluation Frequency: 0 Monitor Mode: External Contraction Comments: DIFFICULT TO SEE TOCO SHE IS CONSTANTLY MOVING AND SCRATCHING. Heart Rate FHR Baseline Rate: 130 Monitor Mode: External US FHR Baseline Changes: No Baseline Change Variability: Marked >25 bpm Accelerations: 15X15 Decelerations: None Category: Category I Pain Assessment Pain Scale: 0 Vaginal Exam Membrane Status: Intact Datetime: 02/21/2017 01:53 Fall Score: 0 Fall Risk Score Definition: No Risk: No action required Datetime: 02/20/2017 23:39 EGA: 30.6 Datetime: 02/20/2017 23:10 Fall Score: 0 Fall Risk Score Definition: No Risk: No action required Datetime: 02/19/2017 19:27 Fall Score: 0 Fall Risk Score Definition: No Risk: No action required Datetime: 02/19/2017 17:58 EGA: 30.5 Fall Score: 0 Fall Risk Score Definition: No Risk: No action required
--- NOTE | 2017-02-23 15:56 | QN ---
Documentation Comment pt doing well vss exam wnl us wnl a/p iup 31 weeks cholestatis of stable dc home WILLIAN PAGAN MD February 23, 2017 15:56
== END 2017-02-23 15:10 | disposition home or self-care (01) ==
LOC: OBT 13:18 → L-D 13:19 → OBT 15:10
PROVIDERS: ATTEND Obstetrics & Gynecology
DX: O26.613 Liver and biliary tract disorders in pregnancy, third trimester (principal); K83.1 Obstruction of bile duct; Z3A.31 31 weeks gestation of pregnancy
CPT/HCPCS: 76818; G0463

== ENCOUNTER 2017-02-26 14:14 | Outpatient (CLI) | payer MEDICAID ==
[~2017-02-26] VITALS: Ht 157.5 cm; Wt 59.5 kg
[2017-02-26 14:27] VITALS: BP 99/56; PULSE 92; RESP 20; Ht 157.5 cm; Wt 59.5 kg
--- NOTE | 2017-02-26 14:54 | RADRPT ---
PROCEDURE: US OB biophysical profile. CLINICAL INDICATION: decreased movements, abdominal pain TECHNIQUE: Multiple sonographic images of the pelvis were obtained. The images were reviewed on a PACS workstation. COMPARISON: 02/23/2017 FINDINGS: There is a single viable intrauterine gestation. Cardiac activity is present with 123 beats per min [place]. There is a vertex presentation. The placenta is posterior fundal. There is no evidence of placental abruption. There is a slightly increased amount of amniotic fluid with an ISAIAS = 20.7 cm. Biophysical profile: movement 2/2 tone 2/2. breathing 2/2 ISAIAS 2/2 Total 05/19 RPTAT: AA . IMPRESSION: Normal biophysical profile. Slightly increased ISAIAS. . .Ander Paris MD, Date Time Electronically viewed and signed by .Ander Paris MD, MD on 02/26/2017 14:53 .S/
--- NOTE | 2017-02-26 17:55 | QN ---
Documentation Comment 31 y/o female G 2 P 1 at 31.5 weeks here for F/U \cholestasis on 02/21/2017 total bile acids were 32.3 needs biweekly NST and BPP q2-3 days patient on Welchol and ursodiol SOCRATES FAYE MD February 26, 2017 17:55
--- NOTE | 2017-02-26 18:32 | CONS ---
Date/Time of Note Date/Time of Note DATE: 02/26/17 TIME: 18:24 Consultation Date/Type/Reason Admit Date/Time February 27, 2000 OB triage consult Reason for Consultation This patient is a 31 years old 2 para 1 living 1 who had a spontaneous vaginal delivery with her previous Her EDC of current is April 25, 2017, which makes her 31 weeks and 5 days now. She has history of hepatitis C in the past and developed cholestasis of during this and being treated and monitored for this condition. She was referred to triage for further monitoring On examination she is a well-developed well-nourished woman who at this time does not have any complaints except for slight pruritus of the lower extremities. . Her vital signs are normal, blood pressure of 99/54, pulse 92, respirations 20, temperature 98.2. heart tone is normal with fairly good variability occasional acceleration no deceleration. We did order an ultrasound study for her and the result was a single intrauterine gestation with heart rate of 123 in vertex presentation, placenta was posterior with no evidence of abruption Her biophysical profile was 8 over ISAIAS was 20.7 cm Constitutional: No chills, No diaphoresis, No disoriented, No febrile, No improved, No no complaints, No other, No poor po, No requiring IVF, No requiring O2 Eyes: No discharge, No no complaints, No other, No pain, No redness, No visual change ENT: No bleeding, No congestion, No discharge, No dysphagia, No no complaints, No other, No pain, No sore throat Respiratory: No cough, No no complaints, No other, No pain, No pleuritic pain, No shortness of breath, No sputum, No wheezing Cardiovascular: No chest pain, No edema, No lightheadedness, No no complaints, No orthopenea, No other, No palpitations, No paroxysmal nocturnal dyspnea Gastrointestinal: No blood, No constipation, No decreased appetite, No diarrhea , No flatus, No nausea, No no complaints, No other, No pain, No passing stool, No vomiting Genitourinary: other (Pelvic examination was not done), No bleeding, No discharge, No dysuria, No flank pain, No hematuria, No no complaints Musculoskeletal: No back pain, No bone/joint pain, No neck pain, No no complaints, No other, No restricted range of motion, No swelling Skin: other (Slight pruritus in lower extremities), No bruising, No erythema, No laceration, No no complaints, No pruritis, No rash, No skin lesions Neurologic: other, No confusion, No dizziness, No focal-weakness, No headache, No no complaints , No seizure, No syncope Endocrine: No dry skin, No no complaints, No other, No polydypsia, No polyuria , No temp intolerance Additional Comments With these positive finding patient was discharged home to continue Actigall 300 mg 3 times a day. She will return to perinatology clinic for the follow-up monitoring Social History Smoking Status: Never smoker Exam/Review of Systems Vital Signs Vitals Vital Signs Date Time Temp Pulse Resp B/P Pulse Ox O2 Delivery O2 Flow Rate FiO2 02/26/17 14:27 98.2 92 20 99/56 Room Air GURPREET CANDELARIO MD February 26, 2017 18:32
--- NOTE | 2017-02-26 19:20 | TRIAGE ---
OB Triage Datetime Report Generated by CPN: 02/26/2017 19:20 Datetime: 02/26/2017 17:00 Labor Evaluation Frequency: 0 Monitor Mode: External Heart Rate FHR Baseline Rate: 130 Monitor Mode: External US FHR Baseline Changes: No Baseline Change Variability: Moderate 6-25 bpm Accelerations: 15X15 Decelerations: None Category: Category I Pain Assessment Pain Scale: 0 Pain Presence: None/Denies Pain Type: N/A Pain Goal: 0 Datetime: 02/26/2017 16:30 Labor Evaluation Frequency: 0 Monitor Mode: External Monitor Mode: External US Pain Assessment Pain Scale: 0 Pain Presence: None/Denies Pain Type: N/A Pain Goal: 0 Datetime: 02/26/2017 16:00 Labor Evaluation Frequency: 0 Monitor Mode: External Heart Rate FHR Baseline Rate: 130 Monitor Mode: External US FHR Baseline Changes: No Baseline Change Variability: Moderate 6-25 bpm Accelerations: 15X15 Decelerations: None Category: Category I Pain Assessment Pain Scale: 3 Pain Presence: Constant Pain Type: Ache Pain Location: Abdomen Pain Goal: 0 Datetime: 02/26/2017 15:30 Labor Evaluation Frequency: 0 Monitor Mode: External Heart Rate FHR Baseline Rate: 130 Monitor Mode: External US FHR Baseline Changes: No Baseline Change Variability: Moderate 6-25 bpm Accelerations: 15X15 Decelerations: None Category: Category I Pain Assessment Pain Scale: 0 Pain Presence: None/Denies Pain Type: N/A Pain Goal: 0 Datetime: 02/26/2017 15:00 Labor Evaluation Frequency: 0 Monitor Mode: External Monitor Mode: External US FHR Baseline Changes: No Baseline Change Variability: Moderate 6-25 bpm Accelerations: 15X15 Decelerations: None Category: Category I Pain Assessment Pain Scale: 0 Pain Presence: None/Denies Pain Type: N/A Pain Goal: 0 Datetime: 02/26/2017 14:30 Assessment Type: Triage Maternal Assessment Level of Consciousness: Fully Conscious DTR's/Clonus: DTRs 2+; No Clonus Headache: Denies Blurred Vision: No Respiratory Effort: Unlabored; Regular Rhythm; Equal Expansion Nausea/Vomiting: Denies RUQ Epigastric Pain: Denies Lower Extremities Edema: None Degree: None Upper Extremities Edema: None Degree: None Facial Edema: None Fall Risk Assessment History of Falling: (0) No Secondary Diagnosis: (0) No Ambulatory Aid: (0) Bedrest/Nurse Assist IV Therapy: (0) No Gait: (0) Normal/Bedrest/Immobile Mental Status: (0) Oriented to Own Ability Fall Score: 0 Fall Risk Score Definition: No Risk: No action required Datetime: 02/26/2017 14:23 Time of Arrival: 02/26/2017 14:10 EGA: 31.5 Arrived By: Ambulatory Arrived From: Home Chief Complaint: FOLLOW UP NST AND BPP Movement: Present Contractions: Denies/Absent Rupture of Membranes: Denies Vaginal Bleeding: None Vaginal Discharge: Denies Recent Sexual Intercouse: Denies Abdominal Trauma: Not Applicable Patient Complaints: None Time Provider Notified: 02/26/2017 16:30 Provider Notified: DR. RAMIREZ Initial Plan: NST. BPP Datetime: 02/23/2017 13:21 Fall Score: 0 Fall Risk Score Definition: No Risk: No action required Datetime: 02/23/2017 13:20 EGA: 31.2 Datetime: 02/21/2017 07:39 Fall Score: 20 Fall Risk Score Definition: No Risk: No action required Datetime: 02/21/2017 01:53 Fall Score: 0 Fall Risk Score Definition: No Risk: No action required Datetime: 02/20/2017 23:39 EGA: 30.6 Datetime: 02/20/2017 23:10 Fall Score: 0 Fall Risk Score Definition: No Risk: No action required Datetime: 02/19/2017 19:27 Fall Score: 0 Fall Risk Score Definition: No Risk: No action required Datetime: 02/19/2017 17:58 EGA: 30.5 Fall Score: 0 Fall Risk Score Definition: No Risk: No action required
== END 2017-02-26 17:35 | disposition home or self-care (01) ==
LOC: OBT 14:14 → L-D 14:17 → OBT 17:35
PROVIDERS: ATTEND Obstetrics & Gynecology
DX: O26.613 Liver and biliary tract disorders in pregnancy, third trimester (principal); K83.1 Obstruction of bile duct; Z3A.31 31 weeks gestation of pregnancy
CPT/HCPCS: 76818; Z7500; G0463

== ENCOUNTER 2017-02-28 10:51 | Outpatient (CLI) | payer MEDICAID ==
[~2017-02-28] VITALS: Ht 157.5 cm; Wt 58.3 kg
[2017-02-28 11:05] VITALS: Ht 157.5 cm; Wt 58.3 kg
[2017-02-28 11:06] VITALS: BP 102/57; PULSE 90; RESP 18
--- NOTE | 2017-02-28 12:13 | RADRPT ---
PROCEDURE: OB ultrasound for biophysical profile CLINICAL INDICATION: Cholestasis TECHNIQUE: Multiple sonographic images of the pelvis were obtained. Transabdominal views of the g ravid uterus are available for review. The images were reviewed on a PACS workstation. COMPARISON: None FINDINGS: breathing movement = 2/2 tone = 2/2 motion = 2/2 ISAIAS = 2/2 ISAIAS = 14.5 cm Single live intrauterine with cardiac activity of 159 bpm. position is cephal ic. The placenta is left lateral. IMPRESSION: 1. Single live intrauterine gestation. 2. Biophysical profile = 8/8. 3. ISAIAS = 14.5 cm. RPTAT: HH .Alondra Lamb MD, MD Date Time Electronically viewed and signed by .Alondra Lamb MD, on 02/28/2017 12:13 .G/
[2017-02-28 13:00] LABS: ADD UMIC YES; URINE BILIRUBIN (Dip) 2+ (NEGATIVE); URINE BLOOD (Dip) NEGATIVE (NEGATIVE); URINE COLOR DK. YELLOW (YELLOW); URINE GLUCOSE (Dip) NEGATIVE (NEGATIVE); URINE KETONES (Dip) TRACE (NEGATIVE); URINE LEUKOCYTE ESTERASE (Dip) 1+ (NEGATIVE); URINE NITRITE (Dip) POSITIVE (NEGATIVE); URINE TOTAL PROTEIN (Dip) TRACE (NEGATIVE); URINE UROBILINOGEN (Dip) 1.0 E.U./dL (0.1-1.0)
[2017-02-28 13:15] LABS: ICTOTEST POSITIVE (NEGATIVE); SQUAMOUS EPITHELIAL CELL,UR MODERATE; URINE RBCS 0-2 /HPF (0)
[2017-02-28 13:16] LABS: BACTERIA,URINE MODERATE; MUCUS,URINE MODERATE
[2017-02-28] MEDS ORDERED: LACTATED RINGER'S 1,000 ML IV SCH (14:00)
[2017-02-28] MEDS ORDERED: CEFTRIAXONE 1 GM/50 ML (PMX) 50 ML IVPB ONE (14:00)
--- NOTE | 2017-02-28 15:35 | TRIAGE ---
OB Triage Datetime Report Generated by CPN: 02/28/2017 15:35 Datetime: 02/28/2017 15:09 Pain Assessment Comments: IV DC CANNULA INTACT Datetime: 02/28/2017 12:00 Stage of : OB Triage Maternal Assessment Level of Consciousness: Fully Conscious Labor Evaluation Frequency: NONE Monitor Mode: External Resting Tone [place]: Relaxed Heart Rate FHR Baseline Rate: 135 Monitor Mode: External US Variability: Moderate 6-25 bpm Accelerations: 15X15 Decelerations: None Pain Assessment Pain Scale: 0 Pain Goal: 3 Vaginal Exam Membrane Status: Intact Vaginal Bleeding: None Datetime: 02/28/2017 11:03 Assessment Type: Triage Maternal Assessment Level of Consciousness: Fully Conscious DTR's/Clonus: DTRs 2+; No Clonus Headache: Denies Blurred Vision: No Respiratory Effort: Unlabored; Regular Rhythm; Equal Expansion Breath Sounds, Left: Clear and Equal Breath Sounds, Right: Clear and Equal Nausea/Vomiting: Denies RUQ Epigastric Pain: Denies Lower Extremities Edema: None Degree: None Upper Extremities Edema: None Degree: None Facial Edema: None Fall Risk Assessment History of Falling: (0) No Secondary Diagnosis: (0) No Ambulatory Aid: (0) Bedrest/Nurse Assist IV Therapy: (0) No Gait: (0) Normal/Bedrest/Immobile Mental Status: (0) Oriented to Own Ability Fall Score: 0 Fall Risk Score Definition: No Risk: No action required Datetime: 02/28/2017 11:02 Time of Arrival: 02/28/2017 10:47 EGA: 32.0 Arrived By: Ambulatory Arrived From: Home Chief Complaint: PT HERE FOR NST/BPP FOR CHOLESTASIS Movement: Present Contractions: Denies/Absent Rupture of Membranes: Denies Vaginal Bleeding: None Vaginal Discharge: Denies Recent Sexual Intercouse: Denies Abdominal Trauma: Not Applicable Patient Complaints: None Time Provider Notified: 02/28/2017 11:40 Provider Notified: JAMES Initial Plan: NST/BPP/UA Datetime: 02/28/2017 10:59 Monitor Mode: External Monitor Mode: External US Datetime: 02/26/2017 14:30 Fall Score: 0 Fall Risk Score Definition: No Risk: No action required Datetime: 02/26/2017 14:23 EGA: 31.5 Datetime: 02/23/2017 13:21 Fall Score: 0 Fall Risk Score Definition: No Risk: No action required Datetime: 02/23/2017 13:20 EGA: 31.2 Datetime: 02/21/2017 07:39 Fall Score: 20 Fall Risk Score Definition: No Risk: No action required Datetime: 02/21/2017 01:53 Fall Score: 0 Fall Risk Score Definition: No Risk: No action required Datetime: 02/20/2017 23:39 EGA: 30.6 Datetime: 02/20/2017 23:10 Fall Score: 0 Fall Risk Score Definition: No Risk: No action required Datetime: 02/19/2017 19:27 Fall Score: 0 Fall Risk Score Definition: No Risk: No action required Datetime: 02/19/2017 17:58 EGA: 30.5 Fall Score: 0 Fall Risk Score Definition: No Risk: No action required
--- NOTE | 2017-02-28 15:50 | QN ---
Documentation Comment 31 y/o female at 32 + weeks gestation here for F/U cholestasis Patient in Ursodiol and Welchol currently asymptomatic NST R , BPP 05/19 Patient is refusing steroids will revisit x 2 DAYS Patient was Rxed for UTI and will continue PO ABs SOCRATES FAYE MD February 28, 2017 15:50
== END 2017-02-28 15:45 | disposition home or self-care (01) ==
LOC: OBT 10:51 → L-D 10:51 → OBT 15:45
PROVIDERS: ATTEND Obstetrics & Gynecology
DX: O26.613 Liver and biliary tract disorders in pregnancy, third trimester (principal); K83.1 Obstruction of bile duct; Z3A.32 32 weeks gestation of pregnancy
CPT/HCPCS: 76818; 81001; 81003; J0696; J7120; 36415; 96365; G0463

== ENCOUNTER 2017-03-12 13:17 | Outpatient (CLI) | payer MEDICAID ==
[~2017-03-12] VITALS: Ht 157.5 cm; Wt 58.0 kg
[2017-03-12 13:50] VITALS: Ht 157.5 cm; Wt 58.0 kg
[2017-03-12 14:03] VITALS: BP 92/61; PULSE 90; RESP 18
--- NOTE | 2017-03-12 14:39 | CONS ---
Date/Time of Note Date/Time of Note DATE: 03/12/17 TIME: 14:31 Consultation Date/Type/Reason Admit Date/Time March 12, 2007 OB triage consult Reason for Consultation This patient is a 31 years old 2 para 1 with estimated date of confinement of April 25, 2017 which makes her 33 weeks and 5 days. She did developed cholestasis of apparently during this and is placed on ursodiol 300 mg 3 times daily . Her complaint is mostly cramp and diarrhea that she developed since last night On examination her vital signs are normal, blood pressure is 92/60, pulse rate , respiration 18, and temperature is 98.7. She does not have much of a contraction at this time on examination of abdomen is soft uterus is also soft ,no contraction could be felt, heart tone is normal with good variability and acceleration no B- cell. Constitutional: improved, no complaints Eyes: No discharge, No no complaints, No other, No pain, No redness, No visual change ENT: No bleeding, No congestion, No discharge, No dysphagia, No no complaints, No other, No pain, No sore throat Respiratory: No cough, No no complaints, No other, No pain, No pleuritic pain, No shortness of breath, No sputum, No wheezing Cardiovascular: No chest pain, No edema, No lightheadedness, No no complaints, No orthopenea, No other, No palpitations, No paroxysmal nocturnal dyspnea Gastrointestinal: other (Complaint of diarrhea several times a day since last night which is associated with abdominal cramp), No blood, No constipation, No decreased appetite, No diarrhea, No flatus, No nausea, No no complaints, No pain, No passing stool, No vomiting Genitourinary: other (No contraction. Pelvic exam was not performed), No bleeding, No discharge, No dysuria, No flank pain, No hematuria, No no complaints Musculoskeletal: No back pain, No bone/joint pain, No neck pain, No no complaints, No other, No restricted range of motion, No swelling Skin: No bruising, No erythema, No laceration, No no complaints, No other, No pruritis, No rash, No skin lesions Neurologic: No confusion, No dizziness, No focal-weakness, No headache, No no complaints, No other, No seizure, No syncope Additional Comments With these finding and due to the fact she had no obstetrical problem and her main problem was diarrhea was sent down to emergency room for further work up and treatment Social History Smoking Status: Never smoker Exam/Review of Systems Vital Signs Vitals Vital Signs Date Time Temp Pulse Resp B/P Pulse Ox O2 Delivery O2 Flow Rate FiO2 03/12/17 14:03 98.7 90 18 92/61 Room Air GURPREET CANDELARIO MD Mar 12, 2017 14:39
== END 2017-03-12 14:15 | disposition home or self-care (01) ==
LOC: L-D 13:17 → OBT 13:17
PROVIDERS: ATTEND Obstetrics & Gynecology
DX: O26.613 Liver and biliary tract disorders in pregnancy, third trimester (principal); K83.1 Obstruction of bile duct; Z3A.33 33 weeks gestation of pregnancy
CPT/HCPCS: G0463

== ENCOUNTER 2017-03-12 14:18 | Emergency (ER) | payer MEDICAID ==
[~2017-03-12] VITALS: Wt 58.0 kg
--- NOTE | 2017-03-12 15:24 | ERD ---
ER Documentation Chief Complaint Date/Time DATE: 03/12/17 TIME: 15:20 Chief Complaint DIARRHEA, PT 33 WKS PG, CLEARED PER OB, MILD ABD CRAMPS, NO N/V HPI This is a 31-year-old female with past medical history for hepatitis C and cholestasis, presents the emergency department for diarrhea starting today. Patient states she had 4 episodes of loose black bowel movements starting at 6 AM this morning. Patient denies any watery diarrhea. No constipation. Patient is currently 33 weeks and was seen prior to this visit by OB unit and discharged. Patient now denies abdominal pain. No vomiting or diarrhea. No fevers or chills. Patient currently takes Ursodiol and wachol TID for cholestasis and Hep C. Patient's [employer] is Dr. Cassidy and patient states she saw him yesterday. No sick contacts and no recent travel. ROS All systems reviewed and are negative except as per history of present illness. Medications Home Meds Active Scripts Ursodiol* (Actigall*) 300 Mg Cap, 300 MG PO TID, #90 CAP 2 Refills Prov:SOCRATES FAYE MD 02/21/17 Colesevelam Hcl* (Welchol*) 625 Mg Tablet, 625 MG PO Q6, #120 TAB 3 Refills Prov:SOCRATES FAYE MD 02/21/17 Reported Medications Multivit/Min/Fol Ac/Iron/Pren* ( S*) 1 Tab Tab, 1 TAB PO DAILY, TAB 02/19/17 Allergies Allergies: Coded Allergies: No Known Allergy (Unverified , 02/20/17) PMhx/Soc History of Surgery: Yes ( abd sx) Anesthesia Reaction: No Hx Neurological Disorder: No Hx Respiratory Disorders: No Hx Cardiac Disorders: No Hx Psychiatric Problems: No Hx Miscellaneous Medical Probl: Yes (hep c) Hx Alcohol Use: No Hx Substance Use: No Hx Tobacco Use: No Smoking Status: Never smoker Physical Exam Vitals Vital Signs Date Time Temp Pulse Resp B/P Pulse Ox O2 Delivery O2 Flow Rate FiO2 03/12/17 18:00 98.2 78 18 116/66 99 Room Air 03/12/17 14:22 97.5 78 17 109/60 99 Physical Exam Const: No acute distress, alert, oriented to person, place and time Head: Atraumatic Eyes: Normal Conjunctiva ENT: Normal External Ears, Nose and Mouth. Neck: Full range of motion..~ No meningismus. Resp: Clear to auscultation bilaterally. No wheezing, rhonchi or crackles. Cardio: Regular rate and rhythm, no murmurs Abd: Soft, non tender, non distended. Normal bowel sounds Skin: No petechiae or rashes Back: No midline or flank tenderness. No CVA tenderness Ext: No cyanosis, or edema Neur: Awake and alert Psych: Normal Mood and Affect Result Diagram: 03/12/17 1530 03/12/17 1530 Results 24 hrs Laboratory Tests Test 03/12/17 15:25 03/12/17 15:30 03/12/17 15:31 Urine Color YELLOW Urine Clarity CLEAR Urine pH 6.0 Urine Specific [place] 1.025 Urine Ketones NEGATIVE Urine Nitrite NEGATIVE Urine Bilirubin 1+ Urine Ictotest NEGATIVE Urine Urobilinogen 1.0 E.U./dL Urine Leukocyte Esterase NEGATIVE Urine Hemoglobin NEGATIVE Urine Glucose NEGATIVE% Urine Total Protein NEGATIVE White Blood Count 8.810^3/ul Red Blood Count 3.7810^6/ul Hemoglobin 11.1g/dl Hematocrit 32.5% Mean Corpuscular Volume 86.0fl Mean Corpuscular Hemoglobin 29.4pg Mean Corpuscular Hemoglobin Concent 34.2g/dl Red Cell Distribution Width 13.2% Platelet Count 85247^3/UL Mean Platelet Volume 10.9fl Neutrophils % 61.0% Lymphocytes % 31.1% Monocytes % 6.2% Eosinophils % 1.2% Basophils % 0.3% Nucleated Red Blood Cells % 0.0/100WBC Neutrophils # 5.410^3/ul Lymphocytes # 2.810^3/ul Monocytes # 0.610^3/ul Eosinophils # 0.110^3/ul Basophils # 0.010^3/ul Nucleated Red Blood Cells # 0.010^3/ul Sodium Level 134mmol/L Potassium Level 3.7mmol/L Chloride Level 104mmol/L Carbon Dioxide Level 22mmol/L Anion Gap 12 Blood Urea Nitrogen 8mg/dl Creatinine 0.46mg/dl Glucose Level 103mg/dl Calcium Level 9.3mg/dl Total Bilirubin 0.2mg/dl Direct Bilirubin 0.00mg/dl Indirect Bilirubin 0.2mg/dl Aspartate Amino Transf (AST/SGOT) 56IU/L Alanine Aminotransferase (ALT/SGPT) 61IU/L Alkaline Phosphatase 159IU/L Total Protein 7.4g/dl Albumin 4.1g/dl Globulin 3.30g/dl Albumin/Globulin Ratio 1.24 Beta HCG, Quantitative 95524.0mIU/ml Bedside Urine pH (LAB) 6.0 Bedside Urine Protein (LAB) Negative Bedside Urine Glucose (UA) Negative Bedside Urine Ketones (LAB) Negative Bedside Urine Blood Negative Bedside Urine Nitrite (LAB) Negative Bedside Urine Leukocyte Esterase (L Negative Current Medications Medications (Trade) Dose Ordered Sig/Yusra Route PRN Reason Start Time Stop Time Status Last Admin Dose Admin Sodium Chloride (NS) 1,000 ml @ 1,000 mls/hr Q1H ONCE IV 03/12/17 15:30 03/12/17 16:29 DC 03/12/17 15:36 Procedures/MDM MDM: 31-year-old female presents emergency department for diarrhea today. Patient is currently 33 weeks A0.. Past medical history for hepatitis C and cholestasis. Patient's [employer] is Dr. Cassidy. Patient was cleared by OB unit prior to being seen today. Patient denies any vaginal bleeding or pelvic cramping. No active vomiting or diarrhea. CBC, CMP and beta quant were ordered. IV access obtained and patient given 1 L IV fluid bolus of normal saline. Urine dip ordered. Labs show slightly elevated AST and Alkaline phosphate. Consulted Dr. Ledezma regarding this patient who agrees that patient is appropriate for outpatient management. Instructed patient to follow-up with [employer] at next scheduled appointment next week. Vital signs are stable. Patient denies abdominal pain. No vomiting or diarrhea. Differential diagnosis includes but not limited to viral gastroenteritis, bacterial gastroenteritis, GERD, gastritis, peptic ulcer disease, normal , subchorionic hemorrhage, ruptured ovarian cyst, UTI or pyelonephritis. Patient is appropriate for outpatient management. Return to ED for any high fever, chest pain, difficulty breathing, shortness breath, wheezing, vomiting, diarrhea, abdominal pain or any new or worsening symptoms. Patient verbalizes understanding. All questions answered at discharge. Departure Diagnosis: Primary Impression: Diarrhea Diarrhea type: unspecified type Qualified Code: R19.7 - Diarrhea, unspecified type Condition: Stable JIMI POLANCO NP Mar 12, 2017 15:24
[2017-03-12 15:29] LABS: URINE BLOOD (Dip) POC Negative (NEGATIVE)
[2017-03-12] MEDS ORDERED: SOD CHLORIDE 0.9% 1,000 ML IV ONE (15:30)
[2017-03-12 15:42] LABS: ADD SCAN DIFF NO
[2017-03-12 15:43] LABS: BASOPHILS % 0.3 % (0.0-2.0); EOSINOPHILS # 0.1 10^3/ul (0.0-0.5); EOSINOPHILS % 1.2 % (0.0-7.0); HEMATOCRIT 32.5 % (37.0-47.0); HEMOGLOBIN 11.1 g/dl (12.0-16.0); LYMPHOCYTES # 2.8 10^3/ul (0.8-2.9); LYMPHOCYTES % 31.1 % (15.0-51.0); MEAN CORPUSCULAR HEMOGLOBIN 29.4 pg (29.0-33.0); MEAN CORPUSCULAR HGB CONC 34.2 g/dl (32.0-37.0); MEAN PLATELET VOLUME 10.9 fl (7.4-10.4); MONOCYTE # 0.6 10^3/ul (0.3-0.9); MONOCYTES % 6.2 % (0.0-11.0); NEUTROPHIL # 5.4 10^3/ul (1.6-7.5); PLATELET COUNT 172 10^3/UL (140-415); RED BLOOD COUNT 3.78 10^6/ul (4.20-5.40); RED CELL DISTRIBUTION WIDTH 13.2 % (11.5-14.5); WHITE BLOOD COUNT 8.8 10^3/ul (4.8-10.8)
[2017-03-12 15:44] LABS: ADD UMIC NO; URINE BILIRUBIN (Dip) 1+ (NEGATIVE); URINE BLOOD (Dip) NEGATIVE (NEGATIVE); URINE COLOR YELLOW (YELLOW); URINE GLUCOSE (Dip) NEGATIVE (NEGATIVE); URINE KETONES (Dip) NEGATIVE (NEGATIVE); URINE LEUKOCYTE ESTERASE (Dip) NEGATIVE (NEGATIVE); URINE NITRITE (Dip) NEGATIVE (NEGATIVE); URINE TOTAL PROTEIN (Dip) NEGATIVE (NEGATIVE); URINE UROBILINOGEN (Dip) 1.0 E.U./dL (0.1-1.0)
[2017-03-12 15:52] LABS: ICTOTEST NEGATIVE (NEGATIVE)
[2017-03-12 16:02] LABS: ALBUMIN 4.1 g/dl (3.3-4.9); ALBUMIN/GLOBULIN RATIO 1.24; BILIRUBIN,INDIRECT 0.2 mg/dl (0-1.1); BILIRUBIN,TOTAL 0.2 mg/dl (0.2-1.3); CALCIUM 9.3 mg/dl (8.4-10.2); CREATININE 0.46 mg/dl (0.44-1.00); POTASSIUM 3.7 mmol/L (3.5-5.1); TOTAL PROTEIN 7.4 g/dl (6.1-8.1)
[2017-03-12 18:00] VITALS: BP 116/66; PULSE 78; RESP 18; TEMP 98.2
== END 2017-03-12 18:03 | disposition home or self-care (01) ==
LOC: FTE 14:18
DX: O99.89 Other specified diseases and conditions complicating pregnancy, childbirth and the puerperium (principal); R19.7 Diarrhea, unspecified; Z3A.33 33 weeks gestation of pregnancy
CPT/HCPCS: 80053; 81003; 84702; 85025; J7030; 36415; 96360

== ENCOUNTER 2017-04-04 08:00 | Inpatient (IN) | payer MEDICAID ==
[~2017-04-04] VITALS: Ht 157.5 cm; Wt 68.7 kg
[2017-04-04 08:55] VITALS: Ht 157.5 cm; Wt 68.7 kg
[2017-04-04 08:56] VITALS: BP 124/80; RESP 18
[2017-04-04] MEDS: LACTATED RINGER'S 1,000 ML IV SCH ×2 (09:21→17:20)
[2017-04-04] MEDS ORDERED: MINERAL OIL LIGHT 10 ML VIAL TOP PRN (09:30)
[2017-04-04] MEDS ORDERED: OXYTOCIN 30 UNITS/LR 500 ML IV PRN (09:30)
[2017-04-04] MEDS ORDERED: MISOPROSTOL 200 MCG TAB PR PRN (09:30)
[2017-04-04] MEDS ORDERED: METHYLERGONOVINE 0.2 MG INJ IM PRN (09:30)
[2017-04-04] MEDS ORDERED: IBUPROFEN 600 MG TAB PO PRN (09:30)
[2017-04-04] MEDS ORDERED: BUTORPHANOL 2 MG INJ IV PRN ×2 (09:30)
[2017-04-04] MEDS ORDERED: LIDOCAINE 1% (MPF) 30 ML INJ INJ PRN (09:30)
[2017-04-04] MEDS ORDERED: CARBOPROST 250 MCG INJ IM PRN (09:30)
[2017-04-04] MEDS ORDERED: DINOPROSTONE 10 MG VAG SUPP VAG ONE (09:30)
[2017-04-04 09:44] LABS: ADD SCAN DIFF NO
[2017-04-04 09:56] LABS: BASOPHILS % 0.3 % (0.0-2.0); EOSINOPHILS # 0.1 10^3/ul (0.0-0.5); EOSINOPHILS % 0.9 % (0.0-7.0); HEMATOCRIT 30.8 % (37.0-47.0); HEMOGLOBIN 10.1 g/dl (12.0-16.0); LYMPHOCYTES # 1.9 10^3/ul (0.8-2.9); LYMPHOCYTES % 29.7 % (15.0-51.0); MEAN CORPUSCULAR HEMOGLOBIN 27.2 pg (29.0-33.0); MEAN CORPUSCULAR HGB CONC 32.8 g/dl (32.0-37.0); MEAN CORPUSCULAR VOLUME 82.8 fl (82.0-101.0); MEAN PLATELET VOLUME 11.4 fl (7.4-10.4); MONOCYTE # 0.5 10^3/ul (0.3-0.9); MONOCYTES % 7.7 % (0.0-11.0); NEUTROPHILS % 61.2 % (39.0-77.0); PLATELET COUNT 143 10^3/UL (140-415); RED BLOOD COUNT 3.72 10^6/ul (4.20-5.40); RED CELL DISTRIBUTION WIDTH 13.4 % (11.5-14.5); WHITE BLOOD COUNT 6.5 10^3/ul (4.8-10.8)
--- NOTE | 2017-04-04 10:12 | HP ---
Date/Time of Note Date/Time of Note DATE: 04/04/17 TIME: 10:10 OB - History Hx of Present Free Text/Dictation 37+wks GA with cholestasis of : 2 Para: 1 Care: Good Care Ultrasounds: Normal mid trimester US Obstetrical Complications: Other (cholestasis of pregnacy) Past Family/Social History * Past Medical, Surgical, Family and Obstetric Histories reviewed from chart. OB Admission Exam Vital Signs Vital Signs Vital Signs Date Time Temp Pulse Resp B/P Pulse Ox O2 Delivery O2 Flow Rate FiO2 04/04/17 08:56 98.1 18 124/80 Room Air Physical Exam Abdomen: WNL Extremities: Normal Membranes: Intact Heart Rate: 140's Accelerations: Accelerations Present Decelerations: No Decelerations Varibility: Moderate Contractions on Admission: >10 Minutes Apart Last 72 hours Lab Results CBC & BMP 04/04/17 09:15 OB Assessment/Plan Reason for admission: observation Plan: Expectant Management Other plan: Induction of labor PRASANTH DELONG M.D. Apr 04, 2017 10:12
[2017-04-04 10:25] LABS: INR 0.92; PROTIME 12.4 Sec (12.2-14.2)
[2017-04-04 10:26] LABS: PARTIAL THROMBOPLASTIN TIME 32.8 Sec (25.0-35.0)
[2017-04-04 11:24] LABS: ADD UMIC YES; UR ASCORBIC ACID NEGATIVE (NEGATIVE); UR BILIRUBIN (Dip) NEGATIVE (NEGATIVE); UR BLOOD (Dip) NEGATIVE (NEGATIVE); UR CLARITY CLEAR (CLEAR); UR COLOR YELLOW (YELLOW); UR GLUCOSE (Dip) NEGATIVE (NEGATIVE); UR KETONES (Dip) NEGATIVE (NEGATIVE); UR LEUKOCYTE ESTERASE (Dip) TRACE Leu/ul (NEGATIVE); UR NITRITE (Dip) NEGATIVE (NEGATIVE); UR RBC 1 /HPF (0-5); UR SPECIFIC GRAVITY (Dip) 1.011 (1.003-1.030); UR TOTAL PROTEIN (Dip) NEGATIVE (NEGATIVE); UR UROBILINOGEN (Dip) 2+ mg/dL (NEGATIVE)
[2017-04-04 11:50] LABS: BARBITURATES Negative (NEGATIVE); BENZODIAZEPINES Negative (NEGATIVE); CANNABINOIDS Negative (NEGATIVE); COCAINE Negative (NEGATIVE); OPIATES Negative (NEGATIVE)
[2017-04-04] MEDS: LACTATED RINGER'S 1,000 ML IV PRN ×2 (13:40→14:18)
[2017-04-04] MEDS ORDERED: FENTAnyl 2MCG/ML-ROPIV 0.2% 100 ML ONE (14:17)
[2017-04-04] MEDS ORDERED: DIPHENHYDRAMINE 50 MG INJ ONE (14:49)
[2017-04-04] MEDS: DIPHENHYDRAMINE 50 MG INJ IV PRN (14:56)
[2017-04-04] MEDS ORDERED: FENTAnyl 2MCG/ML-ROPIV 0.2% 100 ML BAG EPI SCH (15:00)
[2017-04-04] MEDS ORDERED: NALOXONE (0.4 MG/ML) INJ IV PRN (15:00)
[2017-04-04] MEDS: COLESEVELAM 625 MG TAB PO SCH (17:43)
[2017-04-04] MEDS ORDERED: OXYTOCIN 30 UNITS/LR 500 ML IV SCH (20:00)
[2017-04-04] MEDS ORDERED: MINERAL OIL LIGHT 10 ML VIAL TOP ONE (20:00)
[2017-04-04] MEDS ORDERED: URSODIOL 300 MG CAP PO SCH (21:00)
[2017-04-05] VITALS (11 sets, daily range): BP systolic 102–122; BP diastolic 51–78; PULSE 82–138; RESP 17–20
[2017-04-05] MEDS ORDERED: OXYTOCIN 30 UNITS/LR 500 ML IVPB ONE
[2017-04-05] MEDS ORDERED: OXYTOCIN 30 UNITS/LR 500 ML IV SCH
[2017-04-05] MEDS ORDERED: MEPERIDINE 50 MG INJ IV ONE
--- NOTE | 2017-04-05 00:12 | LDN ---
Date/Time of Note Date/Time of Note DATE: 04/05/17 TIME: 00:09 Delivery Summary pf a viable infant over intact perineum Weeks of Gestation 37 Placenta Delivered: Spontaneously, Intact & Complete Meconium: Light Episiotomy: No Perineal laceration: 0 Laceration repair: small hymenal laceration was repaired with 2 0 Vicryl Anesthesia type: Epidural Estimated blood loss: 400 Sponge & Needle done & correct: Yes All needle counts correct: Yes Any foreign bodies felt in the: No Problems: Infant Delivery Information Sex Sex: female Apgars 1 Minute: 8 5 Minute: 9 Suctioning Nose & mouth suctioned at andrea: Yes Delee suction performed: No Umbilical Cord Umbilical cord with: 3 Vessels Cord presentations: no nuchal cord Cord Blood was obtained: Yes Mother & Baby Disposition Disposition Mom & Baby to Maternity; Good: Yes (mother and baby were recovered in good condition ) Mom transferred to: Other (maternity ) Baby to NICU: No SOCRATES FAYE MD Apr 05, 2017 00:12
[2017-04-05] MEDS: DIPHENHYDRAMINE 50 MG INJ IV PRN (00:15)
--- NOTE | 2017-04-05 01:04 | DELSUM ---
Delivery Summary A-C Datetime Report Generated by CPN: 04/05/2017 01:03 DELIVERY PERSONNEL Consulting Solution Manager: [place], [place] MATERNAL INFORMATION Delivery Anesthesia: Epidural Medications in Delivery: 30 UNIT PITOCIN Estimated Blood Loss (ml): 400 Placenta Cultured: No Maternal Complications: Other Other Maternal Complications: CHOLESTASIS; HEPATITIS C + LABOR SUMMARY EDC: 04/25/2017 00:00 No. Babies in Womb: 1 Attempted: No Labor Anesthesia: Epidural LABOR INFORMATION Reason for Induction: Other Reason for Induction- Other: CHOLESTASIS OF Onset of Labor: 04/04/2017 09:23 Cervical Ripening Agents: Cervidil Oxytocin: Augmentation Group B Beta Strep: Negative Group B Beta Strep: Not Done Antibiotics # of Doses: 0 Steroids Given: None Reason Steroids Not Administered: Not Applicable MEMBRANES Membranes Rupture Method: Artificial Rupture of Membranes: 04/04/2017 16:54 Length of Rupture (hr): 6.70 Amniotic Fluid Color: Bloody Amniotic Fluid Amount: Large STAGES OF LABOR Stage 3 hr: 0 Stage 3 min: 2 Total Time in Labor hr: 14 Total Time in Labor min: 15 VAGINAL DELIVERY Episiotomy: None Laceration Extension: First Degree Other Laceration: HYMENE Laceration Repair: Yes Initial Vag Sponge Count: 10 Final Vag Sponge Count: 20 Initial Vag Sharps Count: 1 Final Vag Sharps Count: 2 Sponge Count Correct: Yes BABY A INFORMATION Delivery Date/Time: 04/04/2017 23:36 Method of Delivery: Vaginal Born in Route : No : N/A Forceps: N/A Vacuum Extraction: N/A Shoulder Dystocia : N/A SHOULDER DYSTOCIA BABY A Infant Delivery Date/Time: 04/04/2017 23:36 PRESENTATION/POSITION BABY A Presentation: Cephalic Presentation: Cephalic Presentation: Cephalic Cephalic Presentation: Vertex Vertex Position: Left Occipital Posterior Breech Presentation: N/A PLACENTA INFORMATION BABY A Placenta Delivery Time : 04/04/2017 23:38 Placenta Method of Delivery: Spontaneous Placenta Status: Delivered SCORES BABY A Heart Rate 1 min: >100 bpm Resp Effort 1 min: Good Cry Reflex Irritability 1 min: Cough/Sneeze/Pulls Away Muscle Tone 1 min: Active Motion Color 1 min: Blue/Pale Resuscitation Effort 1 min: Tactile Stimulation SCORE 1 MIN: 8 Heart Rate 5 min: >100 bpm Resp Effort 5 min: Good Cry Reflex Irritability 5 min: Cough/Sneeze/Pulls Away Muscle Tone 5 min: Active Motion Color 5 min: Body [place], Extremit Blue Resuscitation Effort 5 min: Tactile Stimulation SCORE 5 MIN: 9 INFORMATION BABY A Gestational Age at Delivery: 37.0 Gestational Status: Early Term- 37- 38.6 Weeks Outcome : Liveborn Condition : Stable Sex: Female IDENTIFICATION/MEDS BABY A ID Band Number: [id number] ID Band Location: Right Leg; Left Arm Sensor Applied: Yes Sensor Number: [id number] Sensor Location : Cord Clamp Vitamin K Given : Not Given Erythromycin Given: Not Given WEIGHT/LENGTH BABY A Birthweight (gm): 2825 Weight (lb): 6 Weight (oz): 4 Length (in): 19.00 Length (cm): 48.26 CORD INFORMATION BABY A No. Cord Vessels: 3 Nuchal Cord : N/A Cord Blood Taken: Yes Suction: Mouth; Nose ASSESSMENT BABY A Infant Complications: Meconium Physical Findings at Delivery: Within Normal Limits Respirations: Appears Normal Microbiology Professor/ALS Called : No Care By: Susan WOLFF Transferred To: Remains with Mother
[2017-04-05] MEDS: ACETAMINOPHEN/CODEINE #3 TAB PO PRN ×2 (03:27→20:19)
[2017-04-05] MEDS ORDERED: BENZOCAINE 20% 56 ML SPRAY TOP PRN (03:30)
[2017-04-05] MEDS ORDERED: METHYLERGONOVINE 0.2 MG INJ IM PRN (03:30)
[2017-04-05] MEDS ORDERED: DIBUCAINE 1% 30 GM OINT PR PRN (03:30)
[2017-04-05] MEDS ORDERED: MISOPROSTOL 200 MCG TAB PR PRN (03:30)
[2017-04-05] MEDS ORDERED: CARBOPROST 250 MCG INJ IM PRN (03:30)
[2017-04-05] MEDS ORDERED: ACETAMINOPHEN/CODEINE #3 TAB PO PRN (03:30)
[2017-04-05] MEDS ORDERED: OXYTOCIN 30 UNITS/LR 500 ML IV PRN (03:30)
[2017-04-05] MEDS ORDERED: LANOLIN 7 GM TUBE TOP PRN (03:30)
[2017-04-05] MEDS ORDERED: WITCH HAZEL/GLYCERIN PAD PR PRN (03:30)
[2017-04-05] MEDS ORDERED: ZOLPIDEM 5 MG TAB PO PRN (03:30)
[2017-04-05] MEDS: LACTATED RINGER'S 1,000 ML IV* SCH ×3 (05:30→19:18)
[2017-04-05] MEDS: IBUPROFEN 600 MG TAB PO SCH ×3 (05:30→18:28)
[2017-04-05] MEDS: COLESEVELAM 625 MG TAB PO SCH ×4 (05:30→18:29)
[2017-04-05] MEDS: CEPHALEXIN 500 MG CAP PO SCH ×3 (05:30→18:28)
[2017-04-05] MEDS: DIPHENHYDRAMINE 50 MG CAP PO PRN ×3 (06:03→22:16)
[2017-04-05] MEDS: SENNA/DOCUSATE NA (8.6MG/50MG) TAB PO SCH ×2 (08:04→21:00)
[2017-04-05] MEDS: MAGNESIUM HYDROXIDE 30ML CUP PO SCH ×2 (08:04→21:00)
[2017-04-05] MEDS: URSODIOL 300 MG CAP PO SCH ×3 (09:38→20:20)
--- NOTE | 2017-04-05 16:55 | DS ---
Date/Time of Note Date/Time of Note home next day DATE: 04/05/17 TIME: 16:53 Obstetrical Discharge Record Final Diagnosis Final Diagnosis: Term delivered Vaginal Delivery Obstetrical Delivery: Spontaneous, Laceration, Repaired Complications Augmentation: Yes Induction: Yes Condition on Discharge Physical Assessment Last Vitals: see nurses notes Voiding: Yes Bowel Movement: Yes Breast: Soft, non-tender, Filling Fundus: Firm Abdomen and Incision: soft bs + fundus firm Episiotomy: NA Calf Tenderness: No Patient Condition: Good SOCRATES FAYE MD Apr 05, 2017 16:55
--- NOTE | 2017-04-05 16:56 | PD.PPDC ---
CREW LEADER Discharge Instruction Provider Information Physician Information 31 y/o female had vaginal delivery Condition Patient Condition: Good Diet Diet: Resume Regular Diet Activity/Restrictions Activity: Normal Activity May Shower Restrictions: Nothing in the Vagina Return to Work or School: May 25, 2017 Follow-up Follow-up with Physician: 4, Week/Weeks (in clinic ) Return to clinic for OB Instructions: Breast Tenderness Depression SOCRATES FAYE MD Apr 05, 2017 16:56
[2017-04-05] MEDS ORDERED: IBUP-1542 PO ×2 (16:58→18:34)
[2017-04-05 18:34] LABS: ADD SCAN DIFF NO
[2017-04-05 18:40] LABS: ABNORMAL IP MESSAGE 1; HEMATOCRIT 17.9 % (37.0-47.0); MEAN CORPUSCULAR HGB CONC 34.1 g/dl (32.0-37.0); MEAN CORPUSCULAR VOLUME 82.1 fl (82.0-101.0); PLATELET COUNT 145 10^3/UL (140-415); RED BLOOD COUNT 2.18 10^6/ul (4.20-5.40); RED CELL DISTRIBUTION WIDTH 13.9 % (11.5-14.5); WHITE BLOOD COUNT 16.3 10^3/ul (4.8-10.8)
[2017-04-05 18:49] LABS: HEMOGLOBIN 6.1 g/dl (12.0-16.0)
[2017-04-05 19:24] LABS: LYMPHOCYTES # 2.3 10^3/ul (0.8-2.9); MONOCYTE # 1.1 10^3/ul (0.3-0.9); NEUTROPHIL # 12.7 10^3/ul (1.6-7.5)
[2017-04-06] MEDS: CEPHALEXIN 500 MG CAP PO SCH ×3 (00:16→12:59)
[2017-04-06] MEDS: IBUPROFEN 600 MG TAB PO SCH ×3 (00:16→13:00)
[2017-04-06] MEDS: COLESEVELAM 625 MG TAB PO SCH ×3 (00:16→12:59)
[2017-04-06] MEDS: LACTATED RINGER'S 1,000 ML IV* SCH ×2 (03:18→11:18)
[2017-04-06 04:00] VITALS: BP 96/60; PULSE 99; RESP 20
[2017-04-06] MEDS: ACETAMINOPHEN/CODEINE #3 TAB PO PRN (04:50)
[2017-04-06 08:16] LABS: ADD SCAN DIFF NO
[2017-04-06 08:19] LABS: ABNORMAL IP MESSAGE 1; HEMATOCRIT 17.6 % (37.0-47.0); MEAN CORPUSCULAR HEMOGLOBIN 26.7 pg (29.0-33.0); MEAN CORPUSCULAR HGB CONC 31.8 g/dl (32.0-37.0); MEAN CORPUSCULAR VOLUME 83.8 fl (82.0-101.0); MEAN PLATELET VOLUME 11.4 fl (7.4-10.4); PLATELET COUNT 157 10^3/UL (140-415); RED CELL DISTRIBUTION WIDTH 14.2 % (11.5-14.5); WHITE BLOOD COUNT 13.8 10^3/ul (4.8-10.8)
[2017-04-06] MEDS: URSODIOL 300 MG CAP PO SCH ×2 (08:22→12:59)
[2017-04-06] MEDS: MAGNESIUM HYDROXIDE 30ML CUP PO SCH (08:27)
[2017-04-06] MEDS: SENNA/DOCUSATE NA (8.6MG/50MG) TAB PO SCH (08:27)
[2017-04-06 08:30] VITALS: BP 100/50; PULSE 85; RESP 85
[2017-04-06 08:35] VITALS: BP_SYST 101; BP_SYST 105; BP_DIAS 55; PULSE 90; RESP 18
[2017-04-06 08:38] LABS: HEMOGLOBIN 5.6 g/dl (12.0-16.0)
[2017-04-06 08:40] VITALS: BP 105/57; PULSE 101; RESP 20
[2017-04-06 10:04] LABS: LYMPHOCYTES # 3.5 10^3/ul (0.8-2.9); MONOCYTE # 0.4 10^3/ul (0.3-0.9); NEUTROPHIL # 9.4 10^3/ul (1.6-7.5)
[2017-04-06 10:09] LABS: ANISOCYTOSIS 2+; MICROCYTOSIS 2+; POLYCHROMASIA 3+
[2017-04-06 10:10] LABS: PLATELET ESTIMATE PLT APPEAR DECREASED
[2017-04-07] MEDS ORDERED: VARICELLA VACCINE LIVE/PF 1,350 UNIT/0.5 ML ML SC* ONE (09:00)
[2017-04-07] MEDS ORDERED: MEASLES,MUMPS,RUBELLA VACCINE INJ SC* ONE (09:00)
[2017-04-07] MEDS ORDERED: DIPHTH/TET/ACEL PERTUSS (ADULT) 0.5 ML VIAL IM* ONE (09:00)
== END 2017-04-06 15:54 | disposition home or self-care (01) | DRG 775 ==
LOC: L-D 08:27 → PP1 04-05 03:08
PROVIDERS: ADMIT Obstetrics & Gynecology; ATTEND Obstetrics & Gynecology
PROC: 3E0P7GC Introduction of Other Therapeutic Substance into Female Reproductive, Via Natural or Artificial Opening (ICD-10-PCS; 2017-04-04)
PROC: 10E0XZZ Delivery of Products of Conception, External Approach (ICD-10-PCS; principal; 2017-04-05)
PROC: 0HQ9XZZ Repair Perineum Skin, External Approach (ICD-10-PCS; 2017-04-05)
DX: O26.62 Liver and biliary tract disorders in childbirth (principal); K83.1 Obstruction of bile duct; Z3A.37 37 weeks gestation of pregnancy; O70.0 First degree perineal laceration during delivery; Z37.0 Single live birth
CPT/HCPCS: 62319; 80307; 81001; 85025; 85610; 85730; 86592; 86850; 86900; 86901; 86920; 87340; 99464; J0595; J1200; J2175; J2590; J3010; J7120